=== PATIENT | female | born 1990 | race Caucasian/White ===

== ENCOUNTER 2017-07-10 12:07 | Emergency (ER) | payer MEDICAID ==
[2017-07-10 12:54] VITALS: BP 146/56
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
--- NOTE | 2017-07-10 14:15 | Diagnostic Imaging Report ---
CT scan cervical spine History: Pain, trauma Total DLP equals 537 CTDI equals 26.0 Axial sections were obtained through the cervical spine region. Additional sagittal and coronal reformatted images are provided. No focal bony lesions are seen. Specifically, no fractures are identified. There is limited visualization of the margins of the cervical spinal cord. No obvious extradural soft tissue abnormalities are seen. The prevertebral soft tissues appear normal. Impression: No acute abnormalities
--- NOTE | 2017-07-10 14:16 | Diagnostic Imaging Report ---
CT scan of the chest without intravenous contrast HISTORY: Pain, trauma Total DLP equals 244 CTDI equals 5.8 Axial sections were obtained from a level above the clavicles down to level below the diaphragm. Evaluation of the vascular and hilar structures limited due to the absence of intravenous contrast. The heart size is normal. No abnormal mediastinal masses. No abnormal focal pulmonary parenchymal processes. No pneumothorax. No acute bony abnormalities. IMPRESSION: No acute abnormalities.
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
== END 2017-07-10 14:34 | disposition home or self-care (01) ==
LOC: ER 12:07
DX: S16.1XXA Strain of muscle, fascia and tendon at neck level, initial encounter (principal); V49.49XA Driver injured in collision with other motor vehicles in traffic accident, initial encounter; Y93.89 Activity, other specified; Y92.488 Other paved roadways as the place of occurrence of the external cause; Y99.8 Other external cause status
CPT/HCPCS: 70450-TC; 71250-TC; 72125-TC; 81025-TC